=== PATIENT | female | born 1990 | race American Indian/Alaskan Native ===

== ENCOUNTER 2018-01-20 08:49 | Emergency (ER) | payer SELFPAY | END 2018-01-20 11:08 | disposition left against medical advice (07) | LOC: ED 08:49 | DX: R07.0 Pain in throat (principal); Z53.21 Procedure and treatment not carried out due to patient leaving prior to being seen by health care provider ==

== ENCOUNTER 2019-05-21 20:58 | Outpatient (CLI) | payer MEDICAID ==
[2019-05-21 21:09] VITALS: BP 128/75
== END 2019-05-21 21:35 | disposition home or self-care (01) ==
LOC: TRG 20:58
PROVIDERS: ATTEND Obstetrics & Gynecology
DX: O36.8120 Decreased fetal movements, second trimester, not applicable or unspecified (principal); Z3A.26 26 weeks gestation of pregnancy
CPT/HCPCS: 59025

== ENCOUNTER 2019-07-11 19:51 | Emergency (ER) | payer SELFPAY | END 2019-07-12 01:30 | disposition home or self-care (01) | LOC: ED 19:51 | DX: J11.1 Influenza due to unidentified influenza virus with other respiratory manifestations (principal) | CPT/HCPCS: 87400 ==

== ENCOUNTER 2019-08-15 10:30 | Emergency (ER) | payer MEDICAID ==
[2019-08-15 10:42] VITALS: BP 132/75
--- NOTE | 2019-08-15 13:46 | Emergency Department Report ---
Minor Respiratory - HPI Chief Complaint: Upper Respiratory Infection Stated Complaint: 38WKS PREG/COUGHING Time Seen by Provider: 08/15/19 12:35 Duration: 1 month Severity: moderate Minor Respiratory: Yes Rhinorrhea, Yes Able to Tolerate Fluids, Yes Cough, Yes Sick Contacts (work), Yes Fever, No Sore Throat, No Ear Pain, No Hemoptysis, No Chest Pain, No Shortness of Breath Other History: This is a 29-year-old -Citizen Of [place] female who presents to the emergency room with a postviral cough for 1 month. Patient is a 38 weeks . Patient states she was diagnosed with the flu last month started feeling better but cannot get rid of the cough. Patient states she was seen by her VIDEO GAME MAKER last week and given azithromycin with minimal improvement of symptoms. Denies shortness of breath, chest pain, wheezing, coryza, myalgia, nausea, vomiting, or diarrhea. ED Review of Systems ROS: Stated complaint: 38WKS PREG/COUGHING Other details as noted in HPI Constitutional: denies: chills, fever Respiratory: cough. denies: shortness of breath, wheezing Cardiovascular: denies: chest pain, palpitations Gastrointestinal: denies: abdominal pain, nausea, diarrhea Musculoskeletal: denies: back pain, joint swelling, arthralgia Skin: denies: rash, lesions Neurological: denies: headache, weakness, paresthesias Psychiatric: denies: anxiety, depression ED Past Medical Hx - Past Medical History Hx Hypertension: No Hx Diabetes: No Hx Deep Vein Thrombosis: No Hx Renal Disease: No Hx Sickle Cell Disease: No Hx Seizures: No Hx Asthma: No Hx HIV: No - Surgical History Past Surgical History?: No - Social History Smoking Status: Never Smoker Substance Use Type: None - Medications Home Medications: Home Medications Medication Instructions Recorded Confirmed Last Taken Type Ciprofloxacin HCl [Cipro] 500 mg PO Q12H #14 tab 09/17/13 Unknown Rx Dicyclomine [Bentyl] 10 mg PO TID PRN 09/17/13 09/17/13 Unknown History metroNIDAZOLE [Flagyl] 500 mg PO BID #14 tablet 09/17/13 Unknown Rx Nitrofurantoin [place]/M-Cryst 100 mg PO Q12HR #20 capsule 08/25/15 Unknown Rx [Macrobid CAP] Cyclobenzaprine [Flexeril] 10 mg PO TID PRN #10 tablet 07/12/19 Unknown Rx Oseltamivir [Tamiflu] 75 mg PO BID #10 cap 07/12/19 Unknown Rx guaiFENesin 400 mg PO Q4H #30 tablet 07/12/19 Unknown Rx Minor Respiratory Exam - Exam General: Vital signs noted. No distress. Alert and acting appropriately. HEENT: Yes Moist Mucous Membranes, Yes Rhinorrhea (turbinates congested with clear discharge), No Pharyngeal Erythema, No Pharyngeal Exudates, No Conjuctival Injection, No Frontal Tenderness, No Maxillary Tenderness Ear: Neither TM Bulge, Neither TM Erythema, Neither EAC Pain, Neither EAC Discharge Neck: Yes Supple, No Adenopathy Lungs: Yes Good Air Exchange, No Wheezes, No Ronchi, No Stridor, No Cough, No Labored Respirations, No Retractions, No Use of Accessory Muscles, No Other Abnormal Lung Sounds Heart: Yes Regular, No Murmur Abdomen: Yes Normal Bowel Sounds, No Tenderness, No Peritoneal Signs Skin: No Rash, No Edema Neurologic: Alert and oriented, no deficits. Musculoskeletal: Unremarkable. ED Course Vital Signs 08/15/19 10:40 Temperature 99.9 F H Pulse Rate 103 H Respiratory 16 Rate Blood Pressure 132/75 O2 Sat by Pulse 99 Oximetry ED Medical Decision Making - Medical Decision Making 29 y.o. female that presents with cough for 1 month. Patient examined by me and stable. VSS and patient in no acute distress. Patient 38 weeks . Patient seen by VIDEO GAME MAKER last week with negative flu and strep tests. Patient completed azithromycin antibiotics. No history of immunocompromise. Nontoxic appearance. Patient no trismus, no airway compromise. Able to tolerate by mouth. Instructed to continue taking Tylenol for fever as instructed by VIDEO GAME MAKER. Start taken antihistamine. Follow up with VIDEO GAME MAKER. Discharge home with prompt outpatient PCP follow up; return precautions discussed. Critical care attestation.: If time is entered above; I have spent that time in minutes in the direct care of this critically ill patient, excluding procedure time. ED Disposition Clinical Impression: Post-viral cough syndrome Disposition: DC-01 TO HOME OR SELFCARE Is pt being admited?: No Condition: Stable Instructions: Acute Cough (ED) Additional Instructions: It is okay to take claritin during for symptomatic relief. Continue taking Tylenol for fever. Follow-up with your VIDEO GAME MAKER. Referrals: [facility] [Provider Group] - 3-5 Days [facility]Provider Group] - 3-5 Days [facility] [Provider Group] - 3-5 Days Forms: Work/School Release Form(ED) Time of Disposition: 13:52
== END 2019-08-15 14:07 | disposition home or self-care (01) ==
LOC: ED 10:30
DX: O98.513 Other viral diseases complicating pregnancy, third trimester (principal); B34.9 Viral infection, unspecified; Z79.899 Other long term (current) drug therapy; Z3A.38 38 weeks gestation of pregnancy

== ENCOUNTER 2021-07-24 12:10 | Emergency (ER) | payer SELFPAY ==
--- NOTE | 2021-07-24 12:55 | Emergency Department Report ---
ED Female HPI - General Chief complaint: Abdominal Pain Stated complaint: ABD PAIN Time Seen by Provider: 07/24/21 12:21 Source: patient Mode of arrival: Ambulatory Limitations: No Limitations - History of Present Illness Initial comments: Patient is a 31-year-old female presents emergency room complaints of pelvic pain that began a week ago. Patient states that she is concerned about her IUD placement. She states that she had the IUD placed 1 year ago by her RECREATION SUPERVISOR. She has not followed up with her RECREATION SUPERVISOR. She states that she has had some ur inary frequency. She denies any dysuria, vaginal bleeding, vaginal discharge, itching, burning, fever, nausea, vomiting, diarrhea. No allergies to medications. She states her last cycle was in June 2021 - Related Data Home Medications Medication Instructions Recorded Confirmed Last Taken Dicyclomine [Bentyl] 10 mg PO TID PRN 09/17/13 09/17/13 Unknown Previous Rx's Medication Instructions Recorded Last Taken Type Ciprofloxacin HCl [Cipro] 500 mg PO Q12H #14 tab 09/17/13 Unknown Rx metroNIDAZOLE [Flagyl] 500 mg PO BID #14 tablet 09/17/13 Unknown Rx Nitrofurantoin [place]/M-Cryst 100 mg PO Q12HR #20 capsule 08/25/15 Unknown Rx [Macrobid CAP] Cyclobenzaprine [Flexeril] 10 mg PO TID PRN #10 tablet 07/12/19 Unknown Rx Oseltamivir [Tamiflu] 75 mg PO BID #10 cap 07/12/19 Unknown Rx guaiFENesin 400 mg PO Q4H #30 tablet 07/12/19 Unknown Rx Naproxen 375 mg PO BID PRN #14 tab 07/24/21 Unknown Rx cephALEXin [Keflex] 500 mg PO BID 7 Days #14 cap 07/24/21 Unknown Rx Allergies Allergy/AdvReac Type Severity Reaction Status Date / Time No Known Allergies Allergy Verified 07/24/21 12:12 ED Review of Systems ROS: Stated complaint: ABD PAIN Other details as noted in HPI Comment: All other systems reviewed and negative ED Past Medical Hx - Past Medical History Hx Hypertension: No Hx Diabetes: No Hx Deep Vein Thrombosis: No Hx Renal Disease: No Hx Sickle Cell Disease: No Hx Seizures: No Hx Asthma: No Hx HIV: No - Surgical History Past Surgical History?: No - Social History Smoking Status: Never Smoker Substance Use Type: None - Medications Home Medications: Home Medications Medication Instructions Recorded Confirmed Last Taken Type Ciprofloxacin HCl [Cipro] 500 mg PO Q12H #14 tab 09/17/13 Unknown Rx Dicyclomine [Bentyl] 10 mg PO TID PRN 09/17/13 09/17/13 Unknown History metroNIDAZOLE [Flagyl] 500 mg PO BID #14 tablet 09/17/13 Unknown Rx Nitrofurantoin [place]/M-Cryst 100 mg PO Q12HR #20 capsule 08/25/15 Unknown Rx [Macrobid CAP] Cyclobenzaprine [Flexeril] 10 mg PO TID PRN #10 tablet 07/12/19 Unknown Rx Oseltamivir [Tamiflu] 75 mg PO BID #10 cap 07/12/19 Unknown Rx guaiFENesin 400 mg PO Q4H #30 tablet 07/12/19 Unknown Rx Naproxen 375 mg PO BID PRN #14 tab 07/24/21 Unknown Rx cephALEXin [Keflex] 500 mg PO BID 7 Days #14 cap 07/24/21 Unknown Rx ED Physical Exam - General Limitations: No Limitations General appearance: alert, in no apparent distress - Head Head exam: Present: atraumatic, normocephalic - Eye Eye exam: Present: normal appearance - ENT ENT exam: Present: mucous membranes moist - Respiratory Respiratory exam: Present: normal lung sounds bilaterally. Absent: respiratory distress, wheezes, rales, rhonchi, stridor, chest wall tenderness, accessory muscle use, decreased breath sounds, prolonged expiratory - Cardiovascular Cardiovascular Exam: Present: regular rate, normal rhythm, normal heart sounds. Absent: systolic murmur, diastolic murmur, rubs, gallop - GI/Abdominal GI/Abdominal exam: Present: soft, normal bowel sounds. Absent: distended, tenderness, guarding, rebound, rigid - Neurological Exam Neurological exam: Present: alert, oriented X3 - Psychiatric Psychiatric exam: Present: normal affect, normal mood - Skin Skin exam: Present: warm, dry, intact ED Course Vital Signs 07/24/21 07/24/21 12:14 14:42 Temperature 98.9 F Pulse Rate 79 72 Respiratory 16 14 Rate Blood Pressure 133/80 Blood Pressure 132/80 [Right] O2 Sat by Pulse 99 100 Oximetry ED Medical Decision Making - Lab Data Lab Results 07/24/21 Range/Units 13:18 Urine Color Yellow (Yellow) Urine Turbidity Slightly-cloudy (Clear) Urine pH 5.0 (5.0-7.0) Ur Specific [place] 1.021 (1.003-1.030) Urine Protein <15 mg/dl (Negative) mg/dL Urine Glucose (UA) Neg (Negative) mg/dL Urine Ketones Neg (Negative) mg/dL Urine Blood Neg (Negative) Urine Nitrite Neg (Negative) Ur Reducing Substances Not Reportable Urine Bilirubin Neg (Negative) Urine Ictotest Not Reportable Urine Urobilinogen < 2.0 (<2.0) mg/dL Ur Leukocyte Esterase Neg (Negative) Urine WBC (Auto) 2.0 (0.0-6.0) /HPF Urine RBC (Auto) 1.0 (0.0-6.0) /HPF U Epithel Cells (Auto) 4.0 (0-13.0) /HPF Urine Bacteria (Auto) 1+ (Negative) /HPF Hyaline Casts 2 /LPF Urine Mucus Few /HPF Urine HCG, Qual Negative (Negative) - Radiology Data Radiology results: report reviewed Ordering Physician: CHAZ HERRERA Date of Service: 07/24/21 Procedure(s): US transvaginal Accession Number(s): [id number] cc: CHAZ HERRERA Pelvic Ultrasound HISTORY: pelvic pain, concerned about IUD. TECHNIQUE: Grayscale and color imaging performed. COMPARISON: None FINDINGS: Transabdominal and endovaginal imaging was performed. Uterus measures 8.5 x 4.3 x 4.3 cm with endometrial echocomplex measuring 9 mm. An IUD is in the mid uterine canal. Both ovaries are unremarkable. No pelvic free fluid. IMPRESSION: IUD in the mid uterine canal. Unremarkable exam. Signer Name: Lucien Lundy MD Signed: 07/24/2021 1:52 PM Workstation Name: [place] [id number] Transcribed By: ALEXIS Dictated By: Lucien Lundy MD Electronically Authenticated By: Lucien Lundy MD Signed Date/Time: 07/24/21 1352 DD/ 1351 TD/TT: - Medical Decision Making Patient is a 31-year-old female presents emergency room complaints of pelvic pain that began a week ago. Patient states that she is concerned about her IUD placement. She states that she had the IUD placed 1 year ago by her RECREATION SUPERVISOR. She has not followed up with her RECREATION SUPERVISOR. She states that she has had some urinary frequency. She denies any dysuria, vaginal bleeding, vaginal discharge, itching, burning, fever, nausea, vomiting, diarrhea. No allergies to medications. She states her last cycle was in June 2021. Vitals are normal. No abdominal tenderness on exam. pelvic US: IMPRESSION: IUD in the mid uterine canal. Unremarkable exam. UA shows 1+ bacteria, otherwise normal, given that pt is having pelvic pain with cover for UTI. pt denies any concerns for STDs and politely declines STD testing/prophylactic treatment. advised pt Please take medication as prescribed. Increase your fluid intake. Follow-up with your primary care doctor. Follow-up with your RECREATION SUPERVISOR. Return to emergency room for any new or worsening symptoms. Critical care attestation.: If time is entered above; I have spent that time in minutes in the direct care of this critically ill patient, excluding procedure time. ED Disposition Clinical Impression: Pelvic pain UTI (urinary tract infection) Qualifiers: Urinary tract infection type: acute cystitis Hematuria presence: without hematuria Qualified Code(s): N30.00 - Acute cystitis without hematuria Disposition: HOME / SELF CARE / HOMELESS Is pt being admited?: No Does the pt Need Aspirin: No Condition: Stable Instructions: Pelvic Pain, Female, Urinary Tract Infection, Adult, Abdominal Pain (ED) Additional Instructions: Please take medication as prescribed. Increase your fluid intake. Follow-up with your primary care doctor. Follow-up with your RECREATION SUPERVISOR. Return to emergency room for any new or worsening symptoms. Prescriptions: cephALEXin [Keflex] 500 mg PO BID 7 Days #14 cap Naproxen 375 mg PO BID PRN #14 tab PRN Reason: pain Referrals: your, primary care doctor [Other] - 3-5 Days your, top spotter [Other] - 3-5 Days Forms: Work/School Release Form(ED) Time of Disposition: 14:18 Print Language: FINNISH
--- NOTE | 2021-07-24 13:57 | Ultrasound Report ---
Pelvic Ultrasound HISTORY: pelvic pain, concerned about IUD. TECHNIQUE: Grayscale and color imaging performed. COMPARISON: None FINDINGS: Transabdominal and endovaginal imaging was performed. Uterus measures 8.5 x 4.3 x 4.3 cm with endometrial echocomplex measuring 9 mm. An IUD is in the mid uterine canal. Both ovaries are unremarkable. No pelvic free fluid. IMPRESSION: IUD in the mid uterine canal. Unremarkable exam. Signer Name: Lucien Lundy MD Signed: 07/24/2021 1:52 PM Workstation Name: [id number]
[2021-07-24 14:03] LABS: HCG Qualitative,Urine Negative (Negative)
[2021-07-24 14:05] LABS: Bacteria,Urine 1+ /HPF (Negative); Bilirubin,Urine NEG (Negative); Blood,Urine NEG (Negative); Color,Urine Yellow (Yellow); Hyaline Casts,Urine 2 /LPF; Mucus,Urine FEW /HPF; Protein,Urine <15 mg/dL mg/dL (Negative); Urobilinogen,Urine < 2.0 mg/dL (<2.0)
[2021-07-24 14:44] VITALS: BP 132/80
== END 2021-07-24 14:42 | disposition home or self-care (01) ==
LOC: ED 12:10
DX: N39.0 Urinary tract infection, site not specified (principal)
CPT/HCPCS: 76830; 76856; 81001; 81025; 99284